=== PATIENT | male | born 1980 | race Caucasian/White ===

== ENCOUNTER 2017-03-16 00:47 | Emergency (ER) | payer MEDICARE, MEDICAID ==
[2017-03-16] MEDS ORDERED: Sodium Chloride 0.9% 1,000 ML IV SCH (03:15)
[2017-03-16] MEDS ORDERED: Lactated Ringers 1,000 ML IV SCH (05:15)
--- NOTE | 2017-03-16 06:56 | EDM.PDOC ---
ED HPI GENERAL MEDICAL PROBLEM - General Chief Complaint: Drug or Alcohol Abuse Stated Complaint: MEDICAL VIA [facility] Time Seen by Provider: 03/16/17 01:06 Source of Information: Reports: Patient History Limitations: Reports: No Limitations - History of Present Illness INITIAL COMMENTS - FREE TEXT/NARRATIVE: History of present illness: [This 36-year-old male was brought in intoxicated by ambulance. Apparently he called the ambulance because he needed help and wanted help to quit drinking. His girlfriend was in attendance when he arrived. She states he's been drinking beer on that's his drug of choice. Has a history of PTSD. We've not been able to get much history other than that from him. He apparently had been through treatment in [place] onetime. He has psychiatric medications that he is supposed to be taking but has not been taking for depression. His girlfriend knew him When he was taking his antidepressants and states that he did better when he would take them. Part of their problem as they have not been able to locate or connect with a psychiatrist in this area to prescribe meds for him. I informed her that there is a psychiatrist at the clinic here in [facility] and apparently she was not aware of that.] Review of systems: As per history of present illness and below otherwise all systems reviewed and negative. Past medical history: As per history of present illness and as reviewed below otherwise noncontributory. Surgical history: As per history of present illness and as reviewed below otherwise noncontributory. Social history: No reported history of drug or alcohol abuse. Family history: As per history of present illness and as reviewed below otherwise noncontributory. Physical exam: Gen. Patient is highly intoxicated upon arrival difficult to arouse smells strongly of alcohol and slurs his speech when he attempts to talk. After being here for hours he is able to converse and states he is willing and wants to go to [facility] directly from the emergency room. HEENT: Atraumatic, normocephalic, pupils reactive, negative for conjunctival pallor or scleral icterus, mucous membranes moist, throat clear, neck supple, nontender, trachea midline. Lungs: Clear to auscultation, breath sounds equal bilaterally, chest nontender. Heart: S1S2, regular, negative for clicks, rubs, or JVD. Abdomen: Soft, nondistended, nontender. Negative for masses or hepatosplenomegaly. Negative for costovertebral tenderness. Pelvis: Stable nontender. Genitourinary: Deferred. Rectal: Deferred. Extremities: Atraumatic, negative for cords or calf pain. Neurovascular unremarkable. Neuro: Awake, alert, oriented. Exam nonfocal. After being here for most of the night. He still displays some evidence of intoxication with slurring of his speech but that could be that's more because he's been sleeping and tired Diagnostics: [Initial alcohol was 296 which was several hours ago urine drug screen is negative.] Therapeutics: [He's received IV fluids while here] Impression: [Acute intoxication on chronic alcoholism] Plan: [Arrangements are being made for him to go to [facility]] Definitive disposition and diagnosis as appropriate pending reevaluation and review of above. Treatments FULL FASHIONED GARMENT KNITTER: Reports: IV/IO, Other (see below) Other Treatments FULL FASHIONED GARMENT KNITTER: Ketamine - Related Data Allergies Allergy/AdvReac Type Severity Reaction Status Date / Time NSAIDS (Non-Steroidal Allergy Bleeding Verified 03/16/17 01:14 Anti-Inflamma Home Meds: Home Meds Carvedilol [Coreg] 25 mg PO BID 03/16/17 [History] Folic Acid 400 mcg PO DAILY 03/16/17 [History] L.acidoph,Paracasei, B.lactis [Probiotic] 1 each PO DAILY 03/16/17 [History] Levothyroxine [Synthroid] 50 mcg PO ACBREAKFAST 03/16/17 [History] Pantoprazole Sodium [Protonix] 40 mg PO DAILY 03/16/17 [History] hydrOXYzine Pamoate [Hydroxyzine Pamoate] 25 mg PO Q8HR PRN 03/16/17 [History] traZODone 150 mg PO BEDTIME 03/16/17 [History] Past Medical History HEENT History: Reports: Impaired Vision Cardiovascular History: Reports: CAD, Other (See Below) Other Cardiovascular History: 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 Gastrointestinal History: Reports: GERD Neurological History: Reports: CVA, Seizure, Other (See Below) Other Neuro History: seizures from anxiety. Psychiatric History: Reports: Depression, PTSD Endocrine/Metabolic History: Reports: Hypothyroidism Hematologic History: Reports: Folic Acid - Infectious Disease History Infectious Disease History: Reports: Chicken Pox Social & Family History - Family History Family Medical History: Unobtainable - Tobacco Use Smoking Status *Q: Current Status Unknown - Caffeine Use Caffeine Use: Reports: Coffee, Soda - Alcohol Use Days Per Week of Alcohol Use: 7 Number of Drinks Per Day: 12 Total Drinks Per Week: 84 - Recreational Drug Use Recreational Drug Use: No ED ROS GENERAL - Review of Systems Review Of Systems: ROS reveals no pertinent complaints other than HPI. - Physical Exam Exam: See Below Course - Vital Signs Last Recorded V/S: Last Vital Signs Temp 36.6 C 03/16/17 00:50 Pulse 111 H 03/16/17 04:25 Resp 15 03/16/17 04:25 BP 152/82 H 03/16/17 04:25 Pulse Ox 97 03/16/17 04:25 - Orders/Labs/Meds Orders: Active Orders 24 hr Category Date Time Status Lactated Ringers [Ringers, Lactated] 1,000 ml Med 03/16/17 05:15 Active IV ASDIRECTED Sodium Chloride 0.9% [Normal Saline] 1,000 ml Med 03/16/17 03:15 Active IV ASDIRECTED Medication Orders Sodium Chloride (Normal Saline) 1,000 mls @ 500 mls/hr IV ASDIRECTED KIRAN Last Admin: 03/16/17 03:15 Dose: 500 mls/hr Lactated Ringer's (Ringers, Lactated) 1,000 mls @ 500 mls/hr IV ASDIRECTED KIRAN Last Admin: 03/16/17 05:15 Dose: 500 mls/hr Labs: Laboratory Tests 03/16/17 03/16/17 03/16/17 Range/Units 02:20 02:20 02:20 WBC 10.2 (4.5-11.0) K/uL RBC 5.87 (4.30-5.90) M/uL Hgb 17.4 H (12.0-15.0) g/dL Hct 49.9 (40.0-54.0) % MCV 85 (80-98) fL MCH 30 (27-31) pg MCHC 35 (32-36) % Plt Count 262 (150-400) K/uL Neut % (Auto) 62 (36-66) % Lymph % (Auto) 30 (24-44) % [place] % (Auto) 5 (2-6) % Eos % (Auto) 2 (2-4) % Baso % (Auto) 1 (0-1) % Sodium 142 (140-148) mmol/L Potassium 3.9 (3.6-5.2) mmol/L Chloride 104 (100-108) mmol/L Carbon Dioxide 24 (21-32) mmol/L Anion Gap 14.4 H (5.0-14.0) mmol/L BUN 10 (7-18) mg/dL Creatinine 0.9 (0.8-1.3) mg/dL Est Cr Clr Drug Dosing 107.11 mL/min Estimated GFR (MDRD) > 60 (>60) Glucose 106 (74-106) mg/dL Calcium 8.6 (8.5-10.1) mg/dL Total Bilirubin 0.3 (0.2-1.0) mg/dL AST 97 H (15-37) U/L ALT 186 H (12-78) U/L Alkaline Phosphatase 203 H (46-116) U/L Total Protein 8.1 (6.4-8.2) g/dL Albumin 3.9 (3.4-5.0) g/dL Globulin 4.2 H (2.3-3.5) g/dL Albumin/Globulin Ratio 0.9 L (1.2-2.2) Salicylates 2.4 (2.0-20.0) mg/dL Urine Opiates Screen (NEGATIVE) Ur Oxycodone Screen (NEGATIVE) Urine Methadone Screen (NEGATIVE) Ur Propoxyphene Screen (NEGATIVE) Acetaminophen 0.0 L (10.0-30.0) ug/mL Ur Barbiturates Screen (NEGATIVE) Ur Tricyclics Screen (NEGATIVE) Ur Phencyclidine Scrn (NEGATIVE) Ur Amphetamine Screen (NEGATIVE) U Methamphetamines Scrn (NEGATIVE) Urine MDMA Screen (NEGATIVE) U Benzodiazepines Scrn (NEGATIVE) U Cocaine Metab Screen (NEGATIVE) U Marijuana (THC) Screen (NEGATIVE) Ethyl Alcohol mg/dL 03/16/17 03/16/17 Range/Units 02:20 04:25 WBC (4.5-11.0) K/uL RBC (4.30-5.90) M/uL Hgb (12.0-15.0) g/dL Hct (40.0-54.0) % MCV (80-98) fL MCH (27-31) pg MCHC (32-36) % Plt Count (150-400) K/uL Neut % (Auto) (36-66) % Lymph % (Auto) (24-44) % [place] % (Auto) (2-6) % Eos % (Auto) (2-4) % Baso % (Auto) (0-1) % Sodium (140-148) mmol/L Potassium (3.6-5.2) mmol/L Chloride (100-108) mmol/L Carbon Dioxide (21-32) mmol/L Anion Gap (5.0-14.0) mmol/L BUN (7-18) mg/dL Creatinine (0.8-1.3) mg/dL Est Cr Clr Drug Dosing mL/min Estimated GFR (MDRD) (>60) Glucose (74-106) mg/dL Calcium (8.5-10.1) mg/dL Total Bilirubin (0.2-1.0) mg/dL AST (15-37) U/L ALT (12-78) U/L Alkaline Phosphatase (46-116) U/L Total Protein (6.4-8.2) g/dL Albumin (3.4-5.0) g/dL Globulin (2.3-3.5) g/dL Albumin/Globulin Ratio (1.2-2.2) Salicylates (2.0-20.0) mg/dL Urine Opiates Screen Negative (NEGATIVE) Ur Oxycodone Screen Negative (NEGATIVE) Urine Methadone Screen Negative (NEGATIVE) Ur Propoxyphene Screen Negative (NEGATIVE) Acetaminophen (10.0-30.0) ug/mL Ur Barbiturates Screen Negative (NEGATIVE) Ur Tricyclics Screen Negative (NEGATIVE) Ur Phencyclidine Scrn Negative (NEGATIVE) Ur Amphetamine Screen Negative (NEGATIVE) U Methamphetamines Scrn Negative (NEGATIVE) Urine MDMA Screen Negative (NEGATIVE) U Benzodiazepines Scrn Negative (NEGATIVE) U Cocaine Metab Screen Negative (NEGATIVE) U Marijuana (THC) Screen Negative (NEGATIVE) Ethyl Alcohol 296 mg/dL Meds: Medications Generic Name Dose Route Start Last Admin Trade Name Freq PRN Reason Stop Dose Admin Sodium Chloride 1,000 mls @ 500 mls/hr 03/16/17 03:15 03/16/17 03:15 Normal Saline IV 500 mls/hr ASDIRECTED KIRAN Administration Lactated Ringer's 1,000 mls @ 500 mls/hr 03/16/17 05:15 03/16/17 05:15 Ringers, Lactated IV 500 mls/hr ASDIRECTED KIRAN Administration Departure - Departure Time of Disposition: 06:56 Disposition: DC/Tfer to Other 70 Condition: Fair Clinical Impression: Alcohol abuse - Discharge Information Forms: ED Department Discharge Additional Instructions: Please accept the help that he will be receiving at [facility] and get her life turned around. - My Orders Last 24 Hours: My Active Orders 03/16/17 03:15 Sodium Chloride 0.9% [Normal Saline] 1,000 ml IV ASDIRECTED 03/16/17 05:15 Lactated Ringers [Ringers, Lactated] 1,000 ml IV ASDIRECTED - Assessment/Plan Last 24 Hours: My Active Orders 03/16/17 03:15 Sodium Chloride 0.9% [Normal Saline] 1,000 ml IV ASDIRECTED 03/16/17 05:15 Lactated Ringers [Ringers, Lactated] 1,000 ml IV ASDIRECTED
[2017-03-16 10:24] VITALS: BP 152/85
== END 2017-03-16 10:35 | disposition other institution (70) ==
LOC: JP.ED 00:47
DX: F10.229 Alcohol dependence with intoxication, unspecified (principal); Y90.8 Blood alcohol level of 240 mg/100 ml or more; H54.7 Unspecified visual loss; I25.10 Atherosclerotic heart disease of native coronary artery without angina pectoris; K21.9 Gastro-esophageal reflux disease without esophagitis; E03.9 Hypothyroidism, unspecified; Z88.8 Allergy status to other drugs, medicaments and biological substances; Z86.73 Personal history of transient ischemic attack (TIA), and cerebral infarction without residual deficits
CPT/HCPCS: 36415; 80053; 80305; 85025; 96360; 96361; 99285; G0480; J7040; J7120

== ENCOUNTER 2017-08-06 12:20 | Emergency (ER) | payer MEDICARE, MEDICAID ==
[2017-08-06 12:42] VITALS: BP 150/106
--- NOTE | 2017-08-06 13:17 | EDM.PDOCBH ---
ED HPI GENERAL MEDICAL PROBLEM - General Chief Complaint: Drug or Alcohol Abuse Stated Complaint: EVALUATION Time Seen by Provider: 08/06/17 13:11 Source of Information: Reports: Patient, Family, RN Notes Reviewed History Limitations: Reports: No Limitations - History of Present Illness INITIAL COMMENTS - FREE TEXT/NARRATIVE: 37-year-old gentleman presents emergency department today requesting treatment for alcohol and narcotic withdrawal. He does use beer and hydrocodone there is a bed waiting for him at time [place] he has no other complaints - Related Data Allergies Allergy/AdvReac Type Severity Reaction Status Date / Time NSAIDS (Non-Steroidal Allergy Bleeding Verified 08/06/17 12:44 Anti-Inflamma Home Meds: Home Meds L.acidoph,Paracasei, B.lactis [Probiotic] 1 each PO DAILY 03/16/17 [History] Pantoprazole Sodium [Protonix] 40 mg PO DAILY 03/16/17 [History] ARIPiprazole [Abilify] 30 mg PO DAILY 08/06/17 [History] Diazepam [Valium] 5 mg PO BID 08/06/17 [History] Lisinopril [Lisinopril] 20 mg PO DAILY 08/06/17 [History] Montelukast Sodium [Singulair] 10 mg PO BEDTIME 08/06/17 [History] PARoxetine HCl [Paxil] 40 mg PO DAILY 08/06/17 [History] Prazosin [Minpress] 1 mg PO BEDTIME 08/06/17 [History] Past Medical History HEENT History: Reports: Impaired Vision Cardiovascular History: Reports: CAD, Other (See Below) Other Cardiovascular History: 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 Gastrointestinal History: Reports: GERD Neurological History: Reports: CVA, Seizure, Other (See Below) Other Neuro History: seizures from anxiety. Psychiatric History: Reports: Addiction, Depression, PTSD Endocrine/Metabolic History: Reports: Hypothyroidism Hematologic History: Reports: Folic Acid - Infectious Disease History Infectious Disease History: Reports: Chicken Pox Social & Family History - Family History Family Medical History: Unobtainable - Tobacco Use Smoking Status *Q: Current Every Day Smoker Years of Tobacco use: 20 Packs/Tins Daily: 0.5 - Caffeine Use Caffeine Use: Reports: Coffee, Energy Drinks, Soda - Alcohol Use Days Per Week of Alcohol Use: 7 Number of Drinks Per Day: 10 Total Drinks Per Week: 70 - Recreational Drug Use Recreational Drug Use: No ED ROS GENERAL - Review of Systems Review Of Systems: See Below Constitutional: Reports: No Symptoms HEENT: Reports: No Symptoms Respiratory: Reports: No Symptoms Cardiovascular: Reports: No Symptoms GI/Abdominal: Reports: No Symptoms : Reports: No Symptoms ED EXAM, BEHAVIORAL HEALTH - Physical Exam Exam: See Below Exam Limited By: No Limitations General Appearance: Alert, WD/WN, No Apparent Distress Respiratory/Chest: No Respiratory Distress, Lungs Clear, Normal Breath Sounds, No Accessory Muscle Use, Chest Non-Tender Cardiovascular: Regular Rate, Rhythm, No Murmur GI/Abdominal: Soft, Non-Tender COURSE, BEHAVIORAL HEALTH COMP - Course Vital Signs: Last Vital Signs Temp 93.2 F L 08/06/17 12:53 Pulse 96 08/06/17 12:53 Resp 16 08/06/17 12:53 BP 150/106 H 08/06/17 12:53 Pulse Ox 98 08/06/17 12:53 Orders, Labs, Meds: Active Orders 24 hr Category Date Time Status DRUG SCREEN, URINE [URCHEM] Stat Lab 08/06/17 13:14 Ordered Laboratory Tests 08/06/17 08/06/17 08/06/17 Range/Units 12:40 12:40 12:40 WBC 8.9 (4.5-11.0) K/uL RBC 5.54 (4.30-5.90) M/uL Hgb 16.5 H (12.0-15.0) g/dL Hct 48.4 (40.0-54.0) % MCV 87 (80-98) fL MCH 30 (27-31) pg MCHC 34 (32-36) % Plt Count 266 (150-400) K/uL Neut % (Auto) 61 (36-66) % Lymph % (Auto) 32 (24-44) % [place] % (Auto) 6 (2-6) % Eos % (Auto) 2 (2-4) % Baso % (Auto) 0 (0-1) % Sodium 140 (140-148) mmol/L Potassium 4.1 (3.6-5.2) mmol/L Chloride 103 (100-108) mmol/L Carbon Dioxide 30 (21-32) mmol/L Anion Gap 7.1 (5.0-14.0) mmol/L BUN 13 (7-18) mg/dL Creatinine 0.9 (0.8-1.3) mg/dL Est Cr Clr Drug Dosing 106.09 mL/min Estimated GFR (MDRD) > 60 (>60) Glucose 81 (74-106) mg/dL Calcium 9.5 (8.5-10.1) mg/dL Total Bilirubin 0.3 (0.2-1.0) mg/dL AST 32 (15-37) U/L ALT 64 (12-78) U/L Alkaline Phosphatase 171 H (46-116) U/L Total Protein 7.8 (6.4-8.2) g/dL Albumin 4.0 (3.4-5.0) g/dL Globulin 3.8 H (2.3-3.5) g/dL Albumin/Globulin Ratio 1.1 L (1.2-2.2) Ethyl Alcohol 128 mg/dL Departure - Departure Time of Disposition: 13:17 Disposition: DC/Tfer to [facility] [place] 64 Condition: Fair Clinical Impression: Alcohol abuse - Discharge Information Referrals: PCP,None [Primary Care Provider] - - My Orders Last 24 Hours: My Active Orders 08/06/17 13:14 DRUG SCREEN, URINE [URCHEM] Stat - Assessment/Plan Last 24 Hours: My Active Orders 08/06/17 13:14 DRUG SCREEN, URINE [URCHEM] Stat Plan: Assessment Acuity = acute Site and laterality = alcohol abuse and intoxication Etiology = EtOH Manifestations = none Location of injury = Home Lab values = CBC, CMP unremarkable alcohol at 128 urine drug screen pending Plan Okay to report to [facility] [place] facility Patient was in agreement with the plan all questions were answered, they were instructed to return to the emergency department or call for worsening symptoms. This note was dictated using [employer] voice recognition software please call with any questions.
== END 2017-08-06 13:29 ==
LOC: JP.ED 12:20
DX: F10.129 Alcohol abuse with intoxication, unspecified (principal); F17.210 Nicotine dependence, cigarettes, uncomplicated; K21.9 Gastro-esophageal reflux disease without esophagitis; F32.9 Major depressive disorder, single episode, unspecified; I25.10 Atherosclerotic heart disease of native coronary artery without angina pectoris; E03.9 Hypothyroidism, unspecified; Z79.899 Other long term (current) drug therapy; Z88.8 Allergy status to other drugs, medicaments and biological substances; Y90.6 Blood alcohol level of 120-199 mg/100 ml
CPT/HCPCS: 36415; 80053; 80305; 85025; 99285; G0480; 99284